=== PATIENT | female | born 1970 | race Caucasian/White ===

== ENCOUNTER → 2022-07-18 07:35 | Outpatient (CLI) | payer OTHER, SELFPAY ==
--- NOTE | ~2022-07-18 | MR_ITS ---
MRI of the lumbar spine Clinical History: Back pain Technique: Axial T2-weighted images, and sagittal T1-weighted, T2-weighted, and T2 fat-sat images wer e acquired. COMPARISON: 02/19/2010 Findings: There is no fracture or subluxation of the lumbar spine. Osseous alignment is unchanged. No suspicious bone marrow signal abnormality identified. At L1-L2 and L2-L3, there is no disc bulge or herniation. There is minimal facet arthropathy. No spin al canal stenosis or neural foraminal narrowing at these levels. At L3-L4 and L4-L5, there are minimal disc bulges. Facet arthropathy is present at these levels. No s edmundo canal stenosis or neural foraminal narrowing at these levels. At L5-S1, there is no disc bulge or herniation. There is mild facet arthropathy. No spinal canal sten osis or neural foraminal narrowing. Paravertebral soft tissues are unremarkable. Impression: Minimal degenerative spondylitic changes, as above. No spinal canal stenosis or neural foraminal narr owing. Reviewed, dictated and finalized at [facility] Impression: Minimal degenerative spondylitic changes, as above. No spinal canal stenosis or neural foraminal narrowing.
== END ==
PROVIDERS: PCP Family Medicine
DX: M54.42 Lumbago with sciatica, left side (principal)
CPT/HCPCS: 72148

== ENCOUNTER 2023-02-08 01:04 | Day surgery (SDC) | payer OTHER, SELFPAY ==
[2023-01-28 14:58] VITALS: BMI 44.4
[2023-02-08 07:32] VITALS: BP 154/101; PULSE 84; RESP 18; TEMP 35.8; O2SAT 100; BMI 43.8
[2023-02-08] MEDS: LACTATED RINGERS 1,000 ML 150 ML IV CONT (07:52)
--- NOTE | 2023-02-08 08:25 | P.HP_ITS ---
History of Present Illness History of Present Illness Consent: Risks, benefits, and alternatives have been discussed and questions answered. Patient agrees to proceed with procedure. Chief complaint: neoplasm screening Narrative: Liyah Garcia is a 53 year old female Presents for screening colonoscopy. Patient's current weight appetite and bowel movements are normal. She denies abdominal pain. Patient has had no bleeding. Family history noncontributory. Review of Systems Review of Systems: Review of systems noncontributory. [facility], [facility] Past Medical History Medical History (Updated 02/08/23 @ 08:26 by Jeff Gilbert MD) Elevated blood pressure reading without diagnosis of hypertension Encounter for general adult medical examination without abnormal findings Morbid obesity Surgical History Surgical History (Updated 11/26/22 @ 10:11 by Gabe Perez MD) History of hip replacement Family History Family History (Updated 11/26/22 @ 10:11 by Gabe Perez MD) Grandparent Heart disease CABG Mother Hypertension Social History Social History (Updated 11/26/22 @ 09:25 by Ashly Torres MA) Smoking status: Never smoker Tobacco type: cigarettes Alcohol intake: current Alcohol use details: occasional every 3 months Substance use: never Substance use type: does not use Lack of Transportation: No Lack of Food: Never True Current Housing: I Have Housing Concerned About Future Housing: No Difficulty Paying Gas/Electric Bills: No Difficulty Paying for Meds: No Currently Unemployed: No Education: High School Diploma/GED Difficulty w/ Childcare or Family Care: No Living arrangements: with family Occupation/Education: occupation Gender identity (if verbalized by the patient): Female Sexual Orientation (if Verbalized by the Patient): Straight or Heterosexual Spiritual care concerns: No Meds Home Medications and Allergies Allergies Allergy/AdvReac Type Severity Reaction Status Date / Time Penicillins Allergy Intermediate Rash Verified 02/08/23 07:41 Vital Signs Vital Signs - 24 hr 02/08/23 07:32 Temperature 96.5 F L Pulse Rate 84 Respiratory Rate 18 Blood Pressure 154/101 H Pulse Oximetry 100 Oxygen Delivery Room Air Exam Narrative: Physical exam reveals patient to be alert. Vital signs stable. HEENT exam is unremarkable. Patient is anicteric. Lungs are clear to auscultation and percussion. Heart is without murmur or extra sounds. Abdomen bowel sounds are present soft nontender with no organomegaly. Digital external rectal exam is normal. Assessment and Plan Assessment and plan (1) Encounter for screening colonoscopy: Code(s): Z12.11 - Encounter for screening for malignant neoplasm of colon Status: Acute Assessment and Plan: Patient presents for screening colonoscopy. She appears to be at average risk for colon polyps. Further recommendations may be given after endoscopy. (2) Morbid obesity: Code(s): E66.01 - Morbid (severe) obesity due to excess calories Status: Acute
--- NOTE | 2023-02-08 09:01 | P.PNAN_ITS ---
Anes - Initial Pre Proc Eval Procedure: Operation Date: 02/08/23 09:00 Proposed Procedures p Screening Colonoscopy - Jeff Gilbert MD Date/Time: 02/08/23 09:01 Surgeon: Jeff Gilbert MD Pre Op Diagnosis: neoplasm screening Patient Data Age: 53 Gender: F Height: 1.63 m Weight: 115.9 kg Last Vital Signs Temp 96.5 F L 02/08/23 07:32 Pulse 84 02/08/23 07:32 Resp 18 02/08/23 07:32 BP 154/101 H 02/08/23 07:32 Pulse Ox 100 02/08/23 07:32 O2 Del Method Room Air 02/08/23 07:32 Allergies Allergy/AdvReac Type Severity Reaction Status Date / Time Penicillins Allergy Intermediate Rash Verified 02/08/23 07:41 Patient hx anesthesia problems: none Family hx anesthesia problems: none Results Review: All pre-operative results and documents have been reviewed as part of the pre- operative evaluation. [facility] Past Medical History Medical History (Updated 02/08/23 @ 08:26 by Jeff Gilbert MD) Elevated blood pressure reading without diagnosis of hypertension Encounter for general adult medical examination without abnormal findings Morbid obesity Surgical History Surgical History (Updated 11/26/22 @ 10:11 by Gabe Perez MD) History of hip replacement Family History Family History (Updated 11/26/22 @ 10:11 by Gabe Perez MD) Grandparent Heart disease CABG Mother Hypertension Social History Social History (Updated 11/26/22 @ 09:25 by Ashly Torres MA) Smoking status: Never smoker Tobacco type: cigarettes Alcohol intake: current Alcohol use details: occasional every 3 months Substance use: never Substance use type: does not use Lack of Transportation: No Lack of Food: Never True Current Housing: I Have Housing Concerned About Future Housing: No Difficulty Paying Gas/Electric Bills: No Difficulty Paying for Meds: No Currently Unemployed: No Education: High School Diploma/GED Difficulty w/ Childcare or Family Care: No Living arrangements: with family Occupation/Education: occupation Gender identity (if verbalized by the patient): Female Sexual Orientation (if Verbalized by the Patient): Straight or Heterosexual Spiritual care concerns: No Anes - Eval Final PreProcedure Day of Procedure 02/08/23 09:01 Patient weight: morbidly obese Heart: regular rate and rhythm Lungs: clear to auscultation Airway: Mallampati scale class II Neurological: alert and oriented Last oral intake: >/= 8 hours ASA classification: III Emergent: no Anesthetic plan: proceed Anesthesia type and monitoring: general GIVS and standard monitoring Results Review: All pre-operative results and documents have been reviewed as part of the pre- operative evaluation. Informed Consent: The patient's anesthetic plan and its attendant risks and benefits were discussed with the patient/family/POA. Questions were solicited and answers provided to the satisfaction of the patient/family/POA.
[2023-02-08 09:27] VITALS: BP 100/61; PULSE 82; RESP 19; O2SAT 99
[2023-02-08 09:37] VITALS: BP 117/75; PULSE 71; RESP 22; O2SAT 100
[2023-02-08 09:47] VITALS: BP 138/95; PULSE 82; RESP 25; O2SAT 100
== END 2023-02-08 09:55 | disposition home or self-care (01) ==
PROVIDERS: PCP Family Medicine; Visit Provider Internal Medicine Gastroenterology
PROC: 0DJD8ZZ Inspection of Lower Intestinal Tract, Via Natural or Artificial Opening Endoscopic (ICD-10-PCS; CPT 45378; principal; 2023-02-08 09:00)
DX: Z12.11 Encounter for screening for malignant neoplasm of colon (principal); K64.8 Other hemorrhoids; K57.30 Diverticulosis of large intestine without perforation or abscess without bleeding; E66.01 Morbid (severe) obesity due to excess calories; Z68.41 Body mass index [BMI] 40.0-44.9, adult
CPT/HCPCS: 45378; J2704; J7120

== ENCOUNTER 2023-11-04 05:47 | Emergency (ER) | payer OTHER, SELFPAY ==
--- NOTE | ~2023-11-04 | XR_ITS ---
Clinical Indication: Shortness of breath PA and lateral views of the chest: Comparison: None Findings: The lungs are clear, without evidence of focal consolidation or pleural effusion. Cardiome diastinal silhouette is within normal limits. Bones and soft tissues are unremarkable. Impression: Normal chest. Reviewed, dictated and finalized at [facility]. Impression: Normal chest.
--- NOTE | 2023-11-04 05:51 | ECG_ITS ---
Test Date: 2023-11-04 05:55:03 Measurements Intervals [place] Rate: 87 P: 13 [place]: 154 QRS: 4 QRSD: 89 T: 12 QT: 359 QTc: 434 Interpretive Statements SINUS RHYTHM No previous ECG available for comparison Electronically Signed On 11-04-2023 13:34:19 CDT by Jael Ortega M.D.
[2023-11-04 05:54] VITALS: BP 164/96; PULSE 95; RESP 17; TEMP 36.4; O2SAT 99
[2023-11-04 06:12] LABS: Basophils Absolute Auto 0.1 K/mm3 (0.0-0.1); Basophils Percent Auto 0.8 % (0.2-1.2); Eosinophils Absolute Auto 0.2 K/mm3 (0-0.3); Eosinophils Percent Auto 2.6 % (0-4.4); Hematocrit 43.9 % (37.0-47.0); Hemoglobin 14.1 g/dL (12.0-15.0); Immature Granulocyte Absolute 0.04 K/mm3 (0.00-0.031); Immature Granulocyte Percent A 0.6 % (0-0.5); Lymphocytes Absolute Auto 1.94 K/mm3 (0.9-3.2); Lymphocytes Percent Auto 29.8 % (18.3-44.2); Mean Corpuscular HGB Conc 32.1 g/dl (32-36); Mean Corpuscular Hemoglobin 28.5 pg (26-34); Mean Corpuscular Volume 88.9 fl (80-100); Mean Platelet Volume 10.7 fl (7.4-10.4); Monocytes Absolute Auto 0.6 K/mm3 (0.1-0.6); Monocytes Percent Auto 8.8 % (2.6-8.5); Neutrophils Absolute Auto 3.7 K/mm3 (1.3-6.7); Neutrophils Percent Auto 57.4 % (45.5-73.1); Platelet Count Result 206 k/mm3 (150-375); Red Blood Count 4.94 M/mm3 (4.2-5.4); Red Cell Distribution Width 13.1 % (11.5-14.5); White Blood Count 6.5 K/mm3 (4.5-10.0)
[2023-11-04 06:16] VITALS: O2SAT 98
--- NOTE | 2023-11-04 06:22 | ED.GENADULT ---
HPI - General Adult General Chief complaint: Arrhythmia/Palpitations <Ever Esteban MD - Last Filed: 11/04/23 06:25> Stated complaint: palpations <Ever Esteban MD - Last Filed: 11/04/23 06:25> Time Seen by Provider: 11/04/23 06:10 <Ever Esteban MD - Last Filed: 11/04/23 06:25> History of Present Illness HPI narrative: Patient is a 53-year-old female presents emergency department with chief complaint of palpitations. Patient reports that she was sleeping and woke up this morning and felt as though her heart was racing patient reports that she has had some palpitations before in the past and today she felt as though her heart was beating fast and her Apple watch red that her heart rate is in the 150s the patient reports that she felt somewhat short of breath with this reports symptoms lasted for a total of about an hour patient reports she has prior history of hypertension is on lisinopril the patient reports no syncope denies vomiting denies diarrhea denies fever chills abdominal pain <Ever Esteban MD - Last Filed: 11/04/23 06:25> Patient is a 53-year-old female presents to the emergency department with chief complaint of palpitations. Patient reports that she was sleeping and woke up this morning and felt as though her heart was racing patient reports that she has had some palpitations before in the past and today she felt as though her heart was beating fast and her Apple watch read that her heart rate is in the 150s the patient reports that she felt somewhat short of breath with this reports symptoms lasted for a total of about an hour patient reports she has prior history of hypertension is on lisinopril the patient reports no syncope denies vomiting denies diarrhea denies fever chills abdominal pain <Tyler Carreon MD - Last Filed: 11/04/23 18:26> Related Data Allergies/adverse reactions: Allergies Allergy/AdvReac Type Severity Reaction Status Date / Time Penicillins Allergy Unknown Rash Verified 11/04/23 05:58 <Ever Esteban MD - Last Filed: 11/04/23 06:25> Review of Systems Review of Systems: A 10 system review of systems was completed on the patient and is negative except for what is stated in the HPI. Nursing and ancillary documentation was reviewed. <Ever Esteban MD - Last Filed: 11/04/23 06:25> PMFSH Comments For has medical history significant for hypertension <Ever Esteban MD - Last Filed: 11/04/23 06:25> Exam Narrative: GENERAL: Well-appearing, well-nourished, and in no acute distress. HEAD: Normocephalic, atraumatic. EYES: PERRLA and EOMI. ENT: Nares clear, no rhinorrhea or epistaxis. Mucous membranes moist. NECK: Supple. CHEST: Clear to auscultation. No respiratory distress. HEART: Regular rate and rhythm. No murmur heard. Normal peripheral pulses. ABDOMEN: Soft, nontender, nondistended, normal active bowel sounds. EXTREMITIES: Normal range of motion. No edema. SKIN: Warm, dry, no rash. NEURO: No focal deficits. Alert and oriented x3. PSYCH: Normal mood and affect. <Ever Esteban MD - Last Filed: 11/04/23 06:25> Course Reevaluation(s) Reevaluation #1: Patient care was signed out to me with labs pending. Patient is afebrile with no leukocytosis is stable hemoglobin of 14.1. Patient has a normal INR and no significant electrolyte abnormalities. Patient's TSH and Mag are negative. Patient had negative troponin. Chest x-ray showed normal chest. EKG shows normal sinus rhythm. Patient was updated the results of her workup. Patient was comfortable with plan for discharge and close follow-up <Tyler Carreon MD - Last Filed: 11/04/23 18:26> Vital Signs Vital signs: Vital Signs Temperature 97.5 F L 11/04/23 05:54 Pulse Rate 95 11/04/23 05:54 Respiratory Rate 17 11/04/23 05:54 Blood Pressure 164/96 H 11/04/23 05:54 Pulse Oximetry 99
[2023-11-04 06:23] LABS: Alanine Aminotransferase 16 U/L (6-35); Albumin Level 4.5 g/dL (3.5-5.1); Alkaline Phosphatase 60 U/L (38-126); Anion Gap 8 mmol/L (4-12); Aspartate Amino Transferase 22 U/L (14-36); Bilirubin,Total 0.7 mg/dL (0.2-1.3); Blood Urea Nitrogen 22 mg/dL (7-17); Calcium 8.8 mg/dL (8.4-10.2); Carbon Dioxide 25 mmol/L (22-30); Chloride 106 mmol/L (98-107); Estimated CRCL calculation 80 ml/min; Estimated Glomerular Filt Rate > 60; Glucose 109 mg/dL (65-110); Lipase 126 U/L (23-300); Potassium 3.6 mmol/L (3.4-5.0); Sodium 139 mmol/L (137-145)
[2023-11-04 06:24] LABS: INR 0.9; Prothrombin Time 12.8 Seconds (11.1-14.7)
[2023-11-04 06:25] LABS: Partial Thromboplastin Time 28.3 Seconds (22.3-36.8)
[2023-11-04 06:34] LABS: Troponin I < 0.012 ng/mL (0.000-0.034)
[2023-11-04 07:15] LABS: Magnesium 2.2 mg/dL (1.6-2.3)
[2023-11-04 07:35] VITALS: PULSE 72
[2023-11-04 07:36] VITALS: BP 150/88; PULSE 72; RESP 14; O2SAT 100
[2023-11-04 08:31] VITALS: BP 122/73; PULSE 66; RESP 17; O2SAT 100
== END 2023-11-04 08:32 | disposition home or self-care (01) ==
PROVIDERS: Emergency Provider Emergency Medicine; PCP Family Medicine
DX: R00.2 Palpitations (principal); I10 Essential (primary) hypertension
CPT/HCPCS: 36415; 71046; 80053; 83690; 83735; 84443; 84484; 85025; 85610; 85730; 93005; 99284